=== PATIENT | male | born 1940 | race Caucasian/White ===

== ENCOUNTER 2021-03-05 12:10 | Outpatient (CLI) | payer MEDICARE ==
[~2021-03-05 12:10] MED LIST: REGADENOSON 0.4 MG/5 ML SYRINGE ONE
== END 2021-03-05 23:59 | disposition home or self-care (01) ==
LOC: CFH 12:10
PROVIDERS: ATTEND Internal Medicine Cardiovascular Disease
DX: Z02.9 Encounter for administrative examinations, unspecified (principal)
CPT/HCPCS: J2785